=== PATIENT | male | born 1990 | race Caucasian/White ===

== ENCOUNTER 2022-11-01 11:45 | Emergency (ER) | payer SELFPAY ==
[~2022-11-01] VITALS: Ht 177.8 cm; Wt 99.8 kg
[2022-11-01] MEDS ORDERED: TDAP [DIPH/PERTUSSIS/TET] 0.5 ML VIAL IM ONE ×2 (12:30→12:37)
[2022-11-01] MEDS ORDERED: CLINDAMYCIN HCL 150 MG CAPSULE PO ONE (12:30)
[2022-11-01] MEDS ORDERED: CLINDAMYCIN HCL 150 MG CAPSULE ONE (12:37)
[2022-11-01] MEDS ORDERED: CLIN300C12 PO (13:35)
[2022-11-01 14:06] VITALS: BP 145/78; TEMP 98.2; O2SAT 99
== END 2022-11-01 14:06 | disposition home or self-care (01) ==
LOC: ER 11:52
DX: S61.211A Laceration without foreign body of left index finger without damage to nail, initial encounter (principal); Z60.2 Problems related to living alone; Z88.0 Allergy status to penicillin; W27.0XXA Contact with workbench tool, initial encounter; Y93.89 Activity, other specified; Y92.89 Other specified places as the place of occurrence of the external cause; Y99.8 Other external cause status
CPT/HCPCS: 99283; 12002; 90471; 90715; A6403